=== PATIENT | female | born 1975 | race Two or more races ===

== ENCOUNTER 2022-09-03 11:42 | Outpatient (CLI) | payer OTHER | END 2022-09-03 11:55 | disposition home or self-care (01) | LOC: RAD 11:42 | PROVIDERS: ATTEND General Practice | DX: Z12.39 Encounter for other screening for malignant neoplasm of breast (principal); J44.0 Chronic obstructive pulmonary disease with (acute) lower respiratory infection; M54.12 Radiculopathy, cervical region ==

== ENCOUNTER 2022-10-15 09:31 | Outpatient (CLI) | payer OTHER | END 2022-10-15 09:37 | disposition home or self-care (01) | LOC: RAD 09:31 | PROVIDERS: ATTEND General Practice | DX: M54.17 Radiculopathy, lumbosacral region (principal) ==